=== PATIENT | male | born 1990 | race Caucasian/White ===

== ENCOUNTER 2019-04-11 17:42 | Emergency (ER) | payer SELFPAY ==
--- NOTE | 2019-04-11 20:10 | EDM.PDOC ---
ED HPI GENERAL MEDICAL PROBLEM - General Chief Complaint: Neuro Symptoms/Deficits Stated Complaint: NUMBNESS IN ARMS Time Seen by Provider: 04/11/19 20:21 Source of Information: Reports: Patient History Limitations: Reports: No Limitations - History of Present Illness INITIAL COMMENTS - FREE TEXT/NARRATIVE: Patient is a 28-year-old male with a complaint of numbness and tingling in his right hand. Symptoms have been experienced in the past. 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 Symptoms are only isolated in the first 3 digits of the hand. And around the palmar surface. Patient states that pain is intermittent and generally worse at night or after long physical labor. Nothing seems to alleviate the pain. Patient not take any medications for the pain. Patient states he otherwise feels well and only complains of intermittent lateral right elbow pain. This pain is chronic and patient denies any recent injury but has had a past history of fracture in that area. No stomach symptoms such as fevers, nausea, vomiting, numbness or tingling anywhere else in the body. In addition to that documented in the HPI above, the additional ROS was obtained : Constitutional: Denies fevers or chills Eyes: Denies vision changes ENMT: Denies sore throat CV: Denies chest pain Resp: Denies SOB GI: Denies vomiting or diarrhea : Denies painful urination MSK: Denies recent trauma Skin: Denies new rashes Neuro: Per HPI Endocrine: Denies unexpected weight loss Heme: Denies bleeding disorders I have reviewed the triage vital signs Const: Well nourished, well developed, appears stated age Eyes: PERRL, no conjunctival injection HENT: NCAT, Neck supple without meningismus CV: RRR, Warm, well-perfused extremities RESP: CTAB, Unlabored respiratory effort GI: soft, non-tender, non-distended, no masses MSK: Positive Tinel sign of the right hand. Negative Phalen sign. No gross deformities appreciated. Equal radial pulses bilaterally. Normal capillary refill. Skin: Warm, dry. 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 Sensation and motor function of extremities grossly intact. Psych: Appropriate mood and affect Right arm Pain Score (Numeric/FACES): 6 - Related Data Allergies Allergy/AdvReac Type Severity Reaction Status Date / Time No Known Allergies Allergy Verified 04/11/19 18:12 Home Meds: Home Meds . [No Known Home Meds] 04/11/19 [History] Past Medical History - Past Health History Medical/Surgical History: Denies Medical/Surgical History - Infectious Disease History Infectious Disease History: Reports: Chicken Pox Social & Family History - Family History Family Medical History: Noncontributory - Tobacco Use Smoking Status *Q: Never Smoker - Recreational Drug Use Recreational Drug Use: No ED ROS GENERAL - Review of Systems Review Of Systems: See Below ED EXAM, NEURO - Physical Exam Exam: See Below *Q Meaningful Use (ADM) - VTE *Q VTE Criteria *Q: Not indicated Course - Vital Signs Last Recorded V/S: Last Vital Signs Temp 36.8 C 04/11/19 18:08 Pulse 86 04/11/19 18:08 Resp 16 04/11/19 18:08 BP 126/68 04/11/19 18:08 Pulse Ox 95 04/11/19 18:08 Departure - Departure Time of Disposition: 20:12 Disposition: Home, Self-Care 01 Condition: Good Clinical Impression: Carpal tunnel syndrome of right wrist - Discharge Information Instructions: Carpal Tunnel Syndrome, [id number] Referrals: Mike Freeman MD [Physician] - Maria Neville [Ordering Only Provider] - Forms: ED Department Discharge Care Plan Goals: The following information is given to patients seen in the emergency department who are being discharged to home. This information is to outline your options for follow-up care. We provide all patients seen in our emergency department with a follow-up referral. The need for follow-up, as well as the timing and circumstances, are variable depending upon the specifics of your emergency department visit. If you don't have a primary care physician on staff, we will provide you with a referral. We always advise you to contact your personal physician following an emergency department visit to inform them of the circumstance of the visit and for follow-up with them and/or the need for any referrals to a consulting specialist. The emergency department will also refer you to a specialist when appropriate. This referral assures that you have the opportunity for followup care with a specialist. All of these measure are taken in an effort to provide you with optimal care, which includes your followup. Under all circumstances we always encourage you to contact your private physician who remains a resource for coordinating your care. When calling for followup care, please make the office aware that this follow-up is from your recent emergency room visit. If for any reason you are refused follow-up, please contact the [facility] emergency department at and ask to speak to the emergency department charge nurse. Wear the wrist brace provided until you are able to purchase one specifically for carpel tunnel. Follow up with general surgery. [facility] Primary care- Internal Medicine and Family [address] [id number] Sepsis Event Note - Evaluation Sepsis Screening Result: No Definite Risk - Focused Exam Vital Signs: Vital Signs Temp Pulse Resp BP Pulse Ox 04/11/19 18:08 36.8 C 86 16 126/68 95 Date Exam was Performed: 04/11/19 Time Exam was Performed: 20:05 - Assessment/Plan Assessment:: Patient 28-year-old male with clinical presentation of carpal tunnel syndrome. There is no evidence of strokelike syndrome or any other vascular issue. Patient has symptoms and physical exam consistent with carpal tunnel syndrome. Patient educated on the use of a wrist brace to help alleviate the symptoms. Patient educated that surgery might be an option in the future if conservative measures do not resolve the issue. Patient also educated about elbow pain which seems to be consistent with epicondylitis given the patient's occupation and repetitive movements. No evidence of fracture on physical exam. Patient will be discharged home with pain control and wrist brace.
== END 2019-04-11 20:00 | disposition home or self-care (01) ==
LOC: MW.ED 17:42
DX: G56.01 Carpal tunnel syndrome, right upper limb (principal)
CPT/HCPCS: 99283